=== PATIENT | female | born 1990 | race Two or more races ===

== ENCOUNTER 2016-12-02 19:18 | Emergency (ER) | payer SELFPAY ==
[2016-12-02 18:57] LABS: BASO % 0.1 % (0-2); EOS % 0.6 % (0-7); HCT-HEMATOCRIT 44.6 % (34.0-49.0); IMMATURE GRANULOCYTES ABSOLUTE 0.03 tho/cmm (0-0.03); IMMATURE GRANULOCYTES PERCENT 0.4 % (0-0.3); LYMPH % 21.1 % (20-45); LYMPH ABSOLUTE COUNT 1.4 tho/cmm (0.8-4.5); MCH (MEAN CORPUSCULAR HGB) 29.1 pg (28.0-32.0); MCHC MEAN CORPUSCULAR HGB CONC 35.9 % (32.0-36.0); MCV (MEAN CELL VOLUME) 81.2 fl (82.0-96.0); MEAN PLATELET VOLUME 10.4 cmc (9.4-12.4); MONO % 7.1 % (0-12); MONOCYTE ABSOLUTE COUNT 0.5 tho/cmm (0.0-1.2); NEUTROPHIL ABSOLUTE COUNT 4.8 tho/cmm (1.6-8.0); NEUTROPHIL-AUTOMATED 4.8 tho/cmm (1.6-8.0); NEUTROPHILS % 70.7 % (40-80); PLATELET COUNT 239 tho/cmm (150-450); RED BLOOD COUNT 5.49 mil/cmm (4.00-5.20); RED CELL DISTRIBUTION WIDTH 12.3 % (12.4-16.4); WHITE BLOOD COUNT 6.8 tho/cmm (4.0-10.0)
[2016-12-02 19:12] LABS: ALB/GLOB RATIO 0.9 (0.8-2.0); ALBUMIN 3.8 g/dl (3.5-5.0); ALKALINE PHOSPHATASE 111 U/L (33-138); ALT/SGPT 23 U/L (12-78); ANION GAP 16 mmol/L (0-20); AST/SGOT 15 U/L (10-40); BILIRUBIN,TOTAL 1.1 mg/dl (0-1.5); BLOOD UREA NITROGEN 17 mg/dl (6-24); CALCIUM 8.9 mg/dl (8.5-10.5); CARBON DIOXIDE-VENOUS 19 mmol/L (22-32); CHLORIDE 106 mmol/l (96-110); CREATININE 0.85 mg/dl (0.50-1.10); GLUCOSE 88 mg/dL (70-110); LIPASE 79 U/L (73-393); SODIUM 137 mmol/L (135-145); eGFR VALUE FOR BLACK >90 mL/Min
[2016-12-02 19:15] LABS: PREGNANCY-SERUM NEGATIVE (NEGATIVE)
[~2016-12-02 19:18] MED LIST: ALBUTEROL SULF8.5 G1 INH; BACTRIM DS TAB1 EAC2 PO; CATAFLAM50 MG PO; IBUPROFEN800 M1 PO; KEFLEX500 M4 PO; MACROBID 100 M100 M1 PO; NAPROSYN500 MG PO; NO HOME MEDICATION XX; NORCO 5-325 TA1 EACH PO; NORCO 5/325 TAB1 TAB PO; OXYCODONE/APAP PO; PRENATAL1 EACH PO; PROMETHAZINE HC25 M3 PO; SINGULAIR10 MG PO; SYMBICORT 160-1 PUFF INH; TYLENOL325 M1 PO; VENTOLIN HFA18 G2 PO
[2016-12-02 19:21] LABS: URINE BILIRUBIN SMALL (NEG); URINE BLOOD MODERATE (NEG); URINE GLUCOSE (UA) NEGATIVE (NEG); URINE KETONE MODERATE (NEG); URINE LEUKOCYTE ESTERASE POSITIVE (NEG); URINE NITRITE NEGATIVE (NEG); URINE PROTEIN MODERATE (NEG); URINE SPECIFIC GRAVITY 1.025 (1.003-1.030)
[2016-12-02 19:53] LABS: URINE APPEARANCE SL CLOUDY; URINE COLOR BROWN
[2016-12-02 19:56] LABS: URINE RBC 0-4 /[HPF] (0-5)
[2016-12-02 19:57] LABS: URINE MUCUS 1+
[2016-12-02] MEDS ORDERED: ULTRAM50 M1 PO (21:55)
== END 2016-12-02 22:08 ==
LOC: EDMED 19:18
PROVIDERS: Emergency Medicine
DX: M54.5 Low back pain (principal); J45.909 Unspecified asthma, uncomplicated; F17.210 Nicotine dependence, cigarettes, uncomplicated; F41.9 Anxiety disorder, unspecified; Z79.899 Other long term (current) drug therapy
CPT/HCPCS: J2270; J2405; J7030

== ENCOUNTER 2016-12-05 07:21 | Emergency (ER) | payer SELFPAY ==
[~2016-12-05 07:21] MED LIST changes: +ULTRAM50 M1 PO
[2016-12-05] MEDS ORDERED: ULTRAM50 M1 PO (07:37)
[2016-12-05 08:18] LABS: BASO % 0.1 % (0-2); EOS % 1.4 % (0-7); EOSINOPHIL ABSOLUTE COUNT 0.1 tho/cmm (0.0-0.7); HCT-HEMATOCRIT 33.2 % (34.0-49.0); HGB-HEMOGLOBIN 11.9 gm/dl (12.0-15.5); IMMATURE GRANULOCYTES ABSOLUTE 0.02 tho/cmm (0-0.03); IMMATURE GRANULOCYTES PERCENT 0.3 % (0-0.3); LYMPH % 28.5 % (20-45); LYMPH ABSOLUTE COUNT 2.2 tho/cmm (0.8-4.5); MCH (MEAN CORPUSCULAR HGB) 28.7 pg (28.0-32.0); MCHC MEAN CORPUSCULAR HGB CONC 35.8 % (32.0-36.0); MEAN PLATELET VOLUME 9.8 cmc (9.4-12.4); MONO % 7.7 % (0-12); MONOCYTE ABSOLUTE COUNT 0.6 tho/cmm (0.0-1.2); NEUTROPHIL ABSOLUTE COUNT 4.9 tho/cmm (1.6-8.0); NEUTROPHIL-AUTOMATED 4.9 tho/cmm (1.6-8.0); PLATELET COUNT 234 tho/cmm (150-450); RED BLOOD COUNT 4.15 mil/cmm (4.00-5.20); RED CELL DISTRIBUTION WIDTH 12.3 % (12.4-16.4); WHITE BLOOD COUNT 7.8 tho/cmm (4.0-10.0)
[2016-12-05 08:38] LABS: ALBUMIN 3.3 g/dl (3.5-5.0); ALKALINE PHOSPHATASE 70 U/L (33-138); ALT/SGPT 25 U/L (12-78); ANION GAP 12 mmol/L (0-20); AST/SGOT 16 U/L (10-40); BLOOD UREA NITROGEN 9 mg/dl (6-24); CALCIUM 8.5 mg/dl (8.5-10.5); CARBON DIOXIDE-VENOUS 24 mmol/L (22-32); CHLORIDE 109 mmol/l (96-110); CREATININE 0.68 mg/dl (0.50-1.10); GLUCOSE 87 mg/dL (70-110); LIPASE 116 U/L (73-393); POTASSIUM 3.3 mmol/L (3.7-5.1); SODIUM 142 mmol/L (135-145); eGFR VALUE FOR BLACK >90 mL/Min
[2016-12-05] MEDS ORDERED: ZOFRAN ODT4 MG PO (09:43)
[2016-12-05] MEDS ORDERED: BENTYL10 M1 PO (09:43)
[2016-12-05] MEDS ORDERED: LOPERAMIDE2 M2 PO (09:43)
== END 2016-12-05 09:57 ==
LOC: EDMED 07:21
PROVIDERS: Emergency Medicine
DX: E86.1 Hypovolemia (principal); R11.10 Vomiting, unspecified; F41.9 Anxiety disorder, unspecified; J45.909 Unspecified asthma, uncomplicated; F17.200 Nicotine dependence, unspecified, uncomplicated; Z79.51 Long term (current) use of inhaled steroids; Z79.899 Other long term (current) drug therapy
CPT/HCPCS: J1170; J2405; J7030